=== PATIENT | female | born 1970 | race American Indian/Alaskan Native ===

== ENCOUNTER 2018-04-09 06:20 | Day surgery (SDC) | payer OTHER ==
[2017-12-06 07:33] VITALS: BMI 36.8
[2018-04-09] MEDS ORDERED: Propofol 10 mg/ml Inj (20 ML) ONE ×2 (08:06→08:36)
[2018-04-09] MEDS ORDERED: Lactated Ringer's 500 ML IV ONE (08:14)
--- NOTE | 2018-04-09 08:26 | CP.SDSHP ---
Same Day Surgery H & P - History Proposed Procedure: colonoscopy Pre-Op Diagnosis: rectal bleeding - Previous Medical/Surgical History Cardiac: Hypertension, Other (hyperlipidemia, Vit D deficiency, ) Endocrine/Metabolic: Obesity Misc: Anemia Previous Surgical History: REINA. Eye surgery - Allergies Allergies: Allergies No Known Allergies Allergy (Verified 04/08/18 13:56) - Physical Exam Vital Signs: Vital Signs 04/09/18 06:32 Temperature 97.5 F L Pulse Rate 75 Respiratory 19 Rate Blood Pressure 150/66 O2 Sat by Pulse 98 Oximetry Mental Status: Alert & Oriented x3 Neuro: WNL Heart: WNL Lungs: WNL GI: WNL - Impression Impression: Rectal bleeding Pt. Evaluated Today:Candidate for Anesthesia & Procedure: Yes - Date & Time Date: 04/09/18 Time: 08:26 Short Stay Discharge - Short Stay Discharge Admitting Diagnosis/Reason for Visit: CHANGES IN BOWEL HABIT, CONSTIPATION UNSPEC Disposition: HOME/ ROUTINE
[2018-04-09 08:31] VITALS: O2SAT 100
[2018-04-09 09:10] VITALS: TEMP 97.3
[2018-04-09 09:34] VITALS: PULSE 66; RESP 18
[2018-04-09 10:39] VITALS: BP 112/69
== END 2018-04-09 10:10 | disposition home or self-care (01) ==
LOC: C.ENDO 06:20
PROVIDERS: ATTEND Internal Medicine Gastroenterology
DX: K64.2 Third degree hemorrhoids (principal); D12.4 Benign neoplasm of descending colon; D12.5 Benign neoplasm of sigmoid colon; D64.9 Anemia, unspecified; K59.00 Constipation, unspecified; I10 Essential (primary) hypertension; E78.49 Other hyperlipidemia; E55.9 Vitamin D deficiency, unspecified; E66.9 Obesity, unspecified; K62.1 Rectal polyp
CPT/HCPCS: 45380; 88305; 88312; J2704; J7120